=== PATIENT | male | born 1960 | race Caucasian/White ===

== ENCOUNTER 2019-12-15 08:05 | Day surgery (SDC) | payer OTHER ==
[2019-12-11 10:30] VITALS: BMI 28.8
[2019-12-15] MEDS ORDERED: PROPOFOL 20 ML ONE ×2 (08:24)
[2019-12-15] MEDS ORDERED: LIDOCAINE HCL/PF 2% SDV 5ML VIAL ONE (08:24)
[2019-12-15 09:23] VITALS: TEMP 97.9
[2019-12-15 09:47] VITALS: BP 104/66; PULSE 59
== END 2019-12-15 09:50 | disposition home or self-care (01) ==
LOC: FASU-ENDO 08:05
PROVIDERS: ATTEND Internal Medicine Gastroenterology
PROC: 0DJD8ZZ Inspection of Lower Intestinal Tract, Via Natural or Artificial Opening Endoscopic (ICD-10-PCS; principal; 2019-12-15 08:58)
DX: Z12.11 Encounter for screening for malignant neoplasm of colon (principal); K57.30 Diverticulosis of large intestine without perforation or abscess without bleeding